=== PATIENT | female | born 1990 | race Caucasian/White ===

== ENCOUNTER 2016-12-21 14:51 | Emergency (ER) | payer MEDICAID, OTHER ==
--- NOTE | 2016-12-21 16:55 | UC ---
Skin Complaint HPI - HPI Summary HPI Summary: 1) 8 days of two very itchy round areas on buttocks. Started the day after turkey hunting when she found ticks crawling (not imbedded) on her body 2) R great toe nail fell off years (?) ago after being stepped on by a cow. Also had some sort of fungus (?) on bottoms of both feet when . A week or two ago saw white area on R great toenail that got painful, turned black like it had blood underneath, and then she squeezed out pus and blood. Now it feels better but nail still looks abnormal. - History of Current Complaint Chief Complaint: [facility] Time Seen by Provider: 12/21/16 16:33 Stated Complaint: TICK BITE Hx Obtained From: Patient Hx Last Menstrual Period: 12/12/16 ?: No Onset/Duration: Gradual Onset Timing: Constant Onset Severity: Mild Current Severity: Mild Location: Discrete Character: Pruritus, Redness, Raised Aggravating: Touch Alleviating: Nothing Associated Signs & Symptoms: Positive: Rash, Drainage - Allergy/Home Medications Allergies/Adverse Reactions: Allergies Allergy/AdvReac Type Severity Reaction Status Date / Time No Known Allergies Allergy Verified 03/30/16 17:58 Review of Systems Constitutional: Negative Skin: Rash, Other - R great toenail drainage Eyes: Negative ENT: Negative Respiratory: Negative Cardiovascular: Negative Gastrointestinal: Negative Genitourinary: Negative Motor: Negative Neurovascular: Negative Musculoskeletal: Negative Neurological: Negative Psychological: Negative All Other Systems Reviewed And Are Negative: Yes PMH/Surg Hx/FS Hx/Imm Hx Previously Healthy: Yes - Surgical History Surgical History: Yes Surgery Procedure, Year, and Place: DENTAL - Family History Known Family History: Positive: None - no family history of cardiac disease - Social History Alcohol Use: Occasionally Substance Use Type: None Smoking Status (MU): Never Smoked Tobacco Physical Exam Triage Information Reviewed: Yes Appearance: Well-Appearing, No Pain Distress, Well-Nourished Vital Signs: Initial Vital Signs Temp 98 F 12/21/16 15:42 Pulse 74 12/21/16 15:42 Resp 18 12/21/16 15:42 Pulse Ox 100 12/21/16 15:42 Vital Signs Reviewed: Yes Eye Exam: Normal Eyes: Positive: Conjunctiva Clear ENT Exam: Normal ENT: Positive: Normal ENT inspection, Hearing grossly normal, Pharynx normal, TMs normal Dental Exam: Normal Neck exam: Normal Neck: Positive: Supple, Nontender, No Lymphadenopathy Respiratory Exam: Normal Respiratory: Positive: Chest non-tender, Lungs clear, Normal breath sounds, No respiratory distress, No accessory muscle use Cardiovascular Exam: Normal Cardiovascular: Positive: RRR Musculoskeletal Exam: Normal Neurological Exam: Normal Neurological: Positive: Alert Psychological Exam: Normal Skin Exam: Other - R great toe nail has darkened and pale area that pulls away from nail bed. No erythema, drainage, or tenderness. 2 4-5cm round red areas on buttocks (R buttock and L buttock) with raised vesicular center and poorly defined edges. Some crust. Course/Dx - Diagnoses Provider Diagnoses: buttocks contact dermatitis. R great toe nail onychomycosis Discharge - Discharge Plan Condition: Stable Disposition: HOME Prescriptions: Triamcinolone 0.5% CREAM(NF) [Triamcinolone 0.5% CREAM*] 1 applic TOPICAL BID # 15 gm Patient Education Materials: Contact Dermatitis (ED) Referrals: Fabricio Parker DPM [Doctor of Podiatric Medicine] - Shane Marina DPM [Doctor of Podiatric Medicine] - Additional Instructions: As we discussed, the problem in your toenail appears to be a fungus. But your nail might not be growing in normally after it fell off -- a grassland conservationist can help diagnose and treat this problem. If you have new or worsening symptoms on your skin, please return here.
== END 2016-12-21 16:59 | disposition home or self-care (01) ==
LOC: UCEAST 14:51
DX: L25.9 Unspecified contact dermatitis, unspecified cause (principal); B35.1 Tinea unguium
CPT/HCPCS: 99202; G0463